=== PATIENT | female | born 1995 | race Caucasian/White ===

== ENCOUNTER 2020-01-08 15:42 | Emergency (ER) | payer SELFPAY ==
[2020-01-08] MEDS ORDERED: MELOXICAM 7.5 MG TABLET PO STA (17:09)
--- NOTE | 2020-01-08 17:16 | ED Physician Documentation ---
History of Present Illness - Stated complaint Stated Complaint: GLF, LT SIDE HIP/KNEE PX - Chief complaint Chief Complaint: Ext Problem - History obtained from History obtained from: Patient - History of Present Illness Timing: How many days ago (2) Pain level max: 5 Pain level now: 5 - Additonal information Additional information: Patient is a 24-year-old female who presents to the emergency department with a left knee and hip pain. She states that she was in the shower 2 days ago when she slipped, attempted to catch herself and fell onto the left knee. Has had continued pain since that time. Worse with movement and better with rest. She also states that her left hip is sore. Denies any possibility of . No head, neck, back pain. Has been taking Tylenol at home. Review of Systems Constitutional: denies: Fever, Chills Respiratory: denies: Cough GI: denies: Nausea, Vomiting, Constipation, Diarrhea Skin: denies: Rash Musculoskeletal: denies: Neck pain, Back pain Neurologic: denies: Headache PD PAST MEDICAL HISTORY - Past Medical History Past Medical History: Yes Cardiovascular: Murmur Respiratory: Asthma Psych: Depression, Anxiety - Past Surgical History Past Surgical History: Yes Ortho: Other HEENT: Tonsil/Adenoidectomy - Present Medications Home Medications: Ambulatory Orders Medication Instructions Recorded Confirmed Meloxicam [Mobic] 7.5 mg PO BID PRN #20 tablet 01/08/20 - Allergies Allergies/Adverse Reactions: Allergies Allergy/AdvReac Type Severity Reaction Status Date / Time No Known Drug Allergies Allergy Verified 01/08/20 16:02 - Social History Does the pt smoke?: No Smoking Status: Never smoker Does the pt drink ETOH?: No Does the pt have substance abuse?: No - Immunizations Immunizations are current?: Yes - POLST Patient has POLST: No PD ED PE NORMAL - Vitals Vital signs reviewed: Yes - General General: Alert and oriented X 3, No acute distress, Well developed/nourished - HEENT HEENT: Moist mucous membranes - Neck Neck: Supple, no meningeal sign - Cardiac Cardiac: RRR - Respiratory Respiratory: No respiratory distress, Clear bilaterally - Back Back: No spinal TTP - Derm Derm: Warm and dry - Extremities Extremities: Other - Neuro Neuro: Alert and oriented X 3 - Free text exam Free text exam: Surgical scars over the left knee. Tenderness palpation on the medial aspect of the knee. ACL, PCL, MCL and LCL are intact, though the LCL is mildly lax. No joint effusion. Unable to tolerate meniscus testing well. Mild tenderness to palpation over the left hip as well, just above the greater trochanter. Otherwise normal examination left lower extremity. No tenderness over the patella. Neurovascularly intact Results - Vitals Vitals: Vital Signs - 24 hr 01/08/20 01/08/20 01/08/20 15:58 17:04 18:14 Temperature 36.4 C L 36.4 C L 36.3 C L Heart Rate 69 66 64 Respiratory 16 16 16 Rate Blood Pressure 147/96 H 142/88 H 138/82 H O2 Saturation 97 100 100 Oxygen O2 Source Room air - Rads (name of study) L hip xray Radiology: Prelim report reviewed, EMP read contemporaneously, See rad report L knee xray Radiology: Prelim report reviewed, EMP read contemporaneously, See rad report PD MEDICAL DECISION MAKING - ED course Complexity details: reviewed results, considered differential, d/w patient ED course: No acute findings on x-rays. Appears to be a left knee sprain. Ambulating well. Will prescribe meloxicam for home. Patient counseled regarding signs and symptoms for which I believe and urgent re-evaluation would be necessary. Patient with good understanding of and agreement to plan and is comfortable going home at this time This document was made in part using voice recognition software. While efforts are made to proofread this document, sound alike and grammatical errors may occur. Departure - Departure Disposition: 01 Home, Self Care Clinical Impression: Knee sprain Qualifiers: Encounter type: initial encounter Involved ligament of knee: unspecified ligament Laterality: left Qualified Code(s): S83.92XA - Sprain of unspecified site of left knee, initial encounter Condition: Good Instructions: ED Sprain Knee Follow-Up: your,doctor in 1 week [Other] Prescriptions: Meloxicam [Mobic] 7.5 mg PO BID PRN #20 tablet PRN Reason: Pain Comments: Return if you worsen. Your x-rays do not show any acute abnormalities today. If you are still having pain in 1 week, you should have a repeat evaluation with your doctor. You may bear weight as tolerated. Discharge Date/Time: 01/08/20 18:16
--- NOTE | 2020-01-08 17:52 | XRAY Report ---
PROCEDURE: Left hip frontal and lateral view. INDICATIONS: fall, L hip pain TECHNIQUE: AP pelvis with lateral view(s) of the left hip(s). COMPARISON: None. FINDINGS: Bones: No fractures or dislocations. Pelvic ring appears intact. No suspicious bony lesions. Soft tissues: The visualized bowel gas pattern is normal. No suspicious soft tissue calcifications. IMPRESSION: Quality of visualization is limited by large body habitus. No definite trauma found.. Reviewed by: Matt Michael MD on 01/08/2020 5:51 PM PDT Approved by: Matt Michael MD on 01/08/2020 5:51 PM PDT Station ID: [id number]
--- NOTE | 2020-01-08 17:54 | XRAY Report ---
PROCEDURE: Knee 4 View LT INDICATIONS: fall, L knee pain TECHNIQUE: 4 views of the left knee(s) were acquired. COMPARISON: None. FINDINGS: Bones: No fractures or dislocations. No suspicious bony lesions. Soft tissues: No joint effusion. No suspicious soft tissue calcifications. IMPRESSION: Mild to moderate degenerative joint space narrowing at the medial compartment of the lef t knee but no trauma found. Reviewed by: Matt Michael MD on 01/08/2020 5:52 PM PDT Approved by: Matt Michael MD on 01/08/2020 5:52 PM PDT Station ID: [id number]
[2020-01-08 18:16] VITALS: BP 138/82
== END 2020-01-08 18:16 | disposition home or self-care (01) ==
LOC: ED 15:42
DX: S83.92XA Sprain of unspecified site of left knee, initial encounter (principal); W01.198A Fall on same level from slipping, tripping and stumbling with subsequent striking against other object, initial encounter; Y93.E1 Activity, personal bathing and showering; Y92.002 Bathroom of unspecified non-institutional (private) residence as the place of occurrence of the external cause
CPT/HCPCS: 73502; 73564; 99284; A9270